=== PATIENT | female | born 2000 | race American Indian/Alaskan Native ===

== ENCOUNTER 2021-05-15 22:29 | Emergency (ER) | payer MEDICAID ==
[2021-05-15 22:36] VITALS: BP 113/79
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
== END 2021-05-16 04:38 | disposition home or self-care (01) ==
LOC: ED 22:29
DX: S80.02XA Contusion of left knee, initial encounter (principal); M25.552 Pain in left hip; W22.8XXA Striking against or struck by other objects, initial encounter; Y93.89 Activity, other specified; Y92.89 Other specified places as the place of occurrence of the external cause; Y99.8 Other external cause status
CPT/HCPCS: 36415; 84703; 99284